=== PATIENT | female | born 1945 | race Caucasian/White ===

== ENCOUNTER 2019-03-05 23:26 | Emergency (ER) | payer OTHER, BC | END 2019-03-06 04:28 | disposition home or self-care (01) | LOC: JER 23:26 | PROC: 0HQ0XZZ Repair Scalp Skin, External Approach (ICD-10-PCS; principal; 2019-03-05) | DX: S01.81XA Laceration without foreign body of other part of head, initial encounter (principal); S50.812A Abrasion of left forearm, initial encounter; W17.89XA Other fall from one level to another, initial encounter; Y93.H2 Activity, gardening and landscaping; Y92.017 Garden or yard in single-family (private) house as the place of occurrence of the external cause; Y99.8 Other external cause status; I10 Essential (primary) hypertension; E78.00 Pure hypercholesterolemia, unspecified ==